=== PATIENT | male | born 1940 | race Caucasian/White ===

== ENCOUNTER 2021-02-19 10:57 | Emergency (ER) | payer OTHER ==
[~2021-02-19] VITALS: Ht 182.9 cm; Wt 104.3 kg
[2021-02-19 10:59] VITALS: BP 129/59
[2021-02-19 12:03] LABS: BASOPHILS 0.5 % (0.0-2.0); EOSINOPHILS 0.6 % (0.0-3.0); HEMATOCRIT 40.3 % (42.0-52.0); HEMOGLOBIN 13.4 gm/dL (14.0-18.0); LYMPHOCYTES 19.7 % (24.0-44.0); MCH 33.1 pg (26.0-34.0); MCHC 33.2 g/dL (28.0-37.0); MCV 99.6 fL (80.0-100.0); MONOCYTES 10.5 % (1.0-8.0); PLATELET COUNT 139 thou/uL (150-400); POLYS 68.7 % (36.0-66.0); RBC 4.04 mil/uL (4.50-6.00); RDW 13.7 % (10.5-14.5); WBC 5.8 thou/uL (4.0-11.0)
[2021-02-19 12:16] LABS: CALCIUM 8.5 mg/dL (8.5-10.1); CREATININE 1.9 mg/dL (0.7-1.3)
[2021-02-19 12:17] LABS: POTASSIUM 4.6 mmol/L (3.5-5.1)
[2021-02-19 12:26] LABS: ALBUMIN 2.9 g/dL (3.4-5.0); TOTAL BILIRUBIN 0.8 mg/dL (0.2-1.0); TOTAL PROTEIN 6.1 g/dL (6.4-8.2)
[2021-02-19 13:24] LABS: URINE BLOOD 3+ (Negative); URINE COLOR YELLOW; URINE GLUCOSE-RANDOM* NEGATIVE (Negative); URINE KETONES NEGATIVE (Negative); URINE PROTEIN (DIPSTICK) 1+ (Negative); URINE SPECIFIC GRAVITY >= 1.030 (1.005-1.035)
[2021-02-19] MEDS ORDERED: MORPHINE S20 MG/5 ML PO (13:33)
[2021-02-19 13:37] LABS: URINE LEUKOCYTES-REFLEX 3+ (Negative); URINE NITRITE-REFLEX POSITIVE (Negative)
[2021-02-19 13:38] LABS: ICTOTEST (BILI CONFIRMATORY) Negative (Negative); URINE BILIRUBIN NEGATIVE (Negative); URINE CLARITY HAZY
[2021-02-19 13:41] LABS: CASTS None Seen /LPF (None Seen); MUCUS 0-3 Light strn/LPF (None Seen); SQUAMOUS 0-3 Few /LPF (0-3)
[2021-02-19 13:42] LABS: BACTERIA-REFLEX >30 Many /HPF (None Seen); CRYSTALS None Seen /LPF (None Seen); URINE WBC-REFLEX >25 Many /HPF (0-5)
[2021-02-19 13:43] LABS: WBC CLUMPS Few (None Seen)
[2021-02-19 13:46] LABS: AMP/METHAMP Negative (Negative); BARBITURATES Negative (Negative); BENZODIAZEPINES Negative (Negative); COCAINE Negative (Negative); METHADONE Negative (Negative); OPIATES Negative (Negative); PCP Negative (Negative)
--- NOTE | 2021-02-19 15:42 | EKG ---
[address] [address] [facility] [place] [address] ELECTROCARDIOGRAM REPORT Name: MAMTA FLANNERY Room #: REG GILLES David#: [id number] Admission: 02/19/21 Attend Phys: Discharge: Date of : 44 Report #: [id number] [facility] ED Test Date: 2021-02-19 Test Time: 11:13:09 Pat Name: MAMTA FLANNERY Department: Room: Gender: M Data Scientist: reny : 1940 Requested By: Julianna Barajas Order Number: [id number] MD: Jayy Danielle Measurements Intervals [place] Rate: 60 P: -42 [place]: 154 QRS: -44 QRSD: 106 T: 6 QT: 616 QTc: 616 Interpretive Statements Atrial-sensed ventricular-paced complexes No further rhythm analysis attempted due to paced rhythm Left axis deviation Prolonged QT interval No previous ECG available for comparison Electronically Signed On 02-19-2021 15:42:19 CDT by Jayy Danielle [email or web address] <ELECTRONICALLY SIGNED> By: Jayy Danielle MD, [facility] 02/19/21 1542 1113 1113 Jayy Danielle MD, FACC /EPI
== END 2021-02-19 15:30 ==
LOC: ER 10:57
PROVIDERS: Emergency Medicine
DX: I45.81 Long QT syndrome (principal); Z20.822 Contact with and (suspected) exposure to COVID-19; F03.90 Unspecified dementia, unspecified severity, without behavioral disturbance, psychotic disturbance, mood disturbance, and anxiety; R45.1 Restlessness and agitation; N39.0 Urinary tract infection, site not specified; Z79.899 Other long term (current) drug therapy; Z88.6 Allergy status to analgesic agent

== ENCOUNTER 2021-02-19 14:52 | Inpatient (IN) | payer OTHER ==
[~2021-02-19] VITALS: Ht 190.5 cm; Wt 73.5 kg
[~2021-02-19 14:52] MED LIST: MORPHINE S20 MG/5 ML PO
--- NOTE | 2021-02-19 17:13 | NUR ---
PATIENT IS AN 80Y/O MALE WHO ARRIVED TO THE [facility] FROM [facility] AT 1524 HOUR. PATIENT RESIDES AT [facility]. ACORDING TO REPORT, PATIENT WAS REFUSING MEDS, AGITATED, UNCOOPERATIVE WITH CARES A,D AGGRESSIVE TOWARDS STAFF. PATIENT IS ALERT TO SELF, FORGETFUL, PLEASANTLY CONFUSED, UNABLE TO RESPOND APPROPRIATELY TO ASSESSMENT QUESTIONS. ASSESSMENT QUESTIONS OBTAINED FROM THE GROUP HOME, AND HIS -DPOA. GAVE CONSENT TO TREAT, SECOND RN WITNESSED CONSENT. PATIENT AMBULATE WITH UNSTEADY GAIT. HE WAS VERY ANGRY IRRITABLE, HOSTILE, COMBATIVE UPON ARRIVAL TO THE UNIT. HE BECAME VERY DIFFICULTY TO VERBALLY REDIRECT, DR. CARLOS PRESENT, AND GAVE ONE TIME ORDER FOR GEODON 15ML. GEODON GIVEN TO PATIENT TO RIGHT DELTIOD BY ORE TESTER. OTHER MEDICAL ISSUES INCLUDE:- VASCULAR DEMENTIA, CARDIOMYOPATHY, ARTHRITIS, HLD, ANEMIA, CHF, AFIB, GOUT, STAGE 3 CKD, PACEMAKER, CVA, LEGALLY BLIND, AND TREMORS. PATIENT CURRENTLY IN DAYROOM EATING SUPPER. THIS NURSE UNABLE TO COMPLETE PHYSICAL ASSESSMENT DUE TO PATIENT AGGRESSIVE/COMBATIVE BEHAVIOR, ORE TESTER REPORTS THAT PATIENT HAS ECHYMOSIS/SCABBED AREAS TO BLE. SIGN OF ACUTE DISTRESS NOTED AT THIS TIME, WILL CONTINUE TO REDIRECT, AND MONITOR FOR SAFETY. NOTED AT THIS TIME, WILL CONTINUE TO REDIRECT, AND MONITOR FOR SAFETY.
[2021-02-19 20:37] VITALS: BP 143/113
--- NOTE | 2021-02-20 05:09 | NUR ---
PATIENT IS ORIENTED TO PERSON ONLY. UNABLE TO ANSWER QUESTIONS APPROPRIATELY. PATIENT IS SITTING IN THE RECLINER TRYING TO STAND UP. PATIENT IS UNSTEADY ON HIS FEET AND REQUIRES MODERATE ASSISTANCE. PATIENT HAD NO MEDICATIONS ORDERED FOR HS TIME. PATIET EXHIBITS NO S/S OF PAIN. NO DISTRESS NOTED. VSS. PATIENT IS INCONTINENT. WILL CONTINUE TO MONITOR FOR CHANGES IN PATIENT STATUS.
[2021-02-20 08:08] LABS: CHOLESTEROL 117 mg/dL (<200); HDL CHOLESTEROL 39 mg/dL (>40); LDL CHOLESTEROL 62 mg/dL (<100); TRIGLYCERIDE 81 mg/dL (<150); VLDL 16 mg/dL (<40)
[2021-02-20 09:39] VITALS: BP 128/72
--- NOTE | 2021-02-20 10:02 | NUR ---
New admit to H. Pt admitted d/t increased aggitation and aggression towards NH staff. Noted to be [facility] and has increased aggitation; worsens in the evenings. PMH: vascular dementia, CHF, CKDIII, CVA. Oriented to self only, does not answer questions appropriately. [facility] foods [facility] at [facility]. No c/o chewing/swallowing issues, decreased appetite or recent weight loss per NH and DPOA. Ate 100% bkft this morning. Pt reported wt 230#, BMI 29. Follow intake trends. Low nutrition risk.
--- NOTE | 2021-02-20 14:34 | NUR ---
Alert and orientated to name only. Calm, compliant and cooperative. Denies SI/HI. Breath sounds clear. Reg HR ausculated. Color pink with brisk capillary refill and palpable peripheral pulses. Incontinent of large amt yellow urine. Active bowel sounds over soft, rounded abdomen. Able to take few steps, unsteady on feet. Currently in day room, no s/o distress.
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
--- NOTE | 2021-02-20 15:20 | NUR ---
Patient becoming physically aggressive with staff, agitated, hitting, kicking, attempting to bite. Multiple staff have attempted to interact with patient, provide activities, provide socialization. None of which were effective. Dr. Ahn notified. Order obtained for Geodon 20mg IM 1x dose. Medication administered.
[2021-02-20 20:15] VITALS: BP 160/93
[2021-02-20 23:06] LABS: GLYCOHEMOGLOBIN (HGB A1C) 4.6 % (4.8-5.6)
--- NOTE | 2021-02-20 23:12 | NUR ---
Assumed care on 02/20/21 @ 1900, seated in a lois chair. Alternates between drowsy and awake. Answers questions, oriented x1 to person. No agression noted. Will continue to monitor for safety and comfort, chair alarm in place.
--- NOTE | 2021-02-21 16:04 | NUR ---
Alert and orientated X1. Combative with cares this AM. Denies SI/HI. Able to get up in recliner. Breath sounds clear. Reg HR auscultated. Color pink with brisk capillary refill and palpable peripheral pulses. Incontinent of large amt yellow urine. Active bowel sounds over soft, rounded abdomen. Resistant to taking meds at noon but then eventually took with yogurt. When approached with afternoon meds he became combative and attempted to get out of recliner. Geodon 20 mg given IM per L deltoid, security provided bob hold d/t combativeness. Currently in dayroom at table with occassional calling out.
--- NOTE | 2021-02-21 16:12 | EKG ---
[address] [employer] [address] ELECTROCARDIOGRAM REPORT Name: MAMTA FLANNERY Room #: 52- ADM IN M.R.#: [id number] Admission: 02/19/21 Attend Phys: Gordon Ahn DO Discharge: Date of : 42 Report #: [id number] [facility] Test Date: 2021-02-21 Test Time: 12:07:37 Pat Name: MAMTA FLANNERY Department: Room: [facility] Gender: M Military Education Coordinator: mariana : 1940 Requested By: Gordon Ahn Order Number: [id number] MD: Jayy Danielle Measurements Intervals [place] Rate: 60 P: -46 [place]: 187 QRS: -50 QRSD: 119 T: -17 QT: 608 QTc: 608 Interpretive Statements Sinus or ectopic atrial rhythm Compared to ECG 02/19/2021 11:13:09 Ectopic atrial rhythm now present Myocardial infarct finding now present Ventricular-paced complex(es) or rhythm no longer present Atrial-sensed ventricular-paced complex(es) or rhythm no longer present Prolonged QT interval no longer present Electronically Signed On 02-21-2021 16:11:56 CDT by Jayy Danielle [email or web address] <ELECTRONICALLY SIGNED> By: Jayy Danielle MD, FAC 02/21/21 1611 1207 1207 Jayy Danielle MD, FAC /EPI
--- NOTE | 2021-02-21 16:51 | NUR ---
TAWANA recieved a call from the DON at [facility] concerning the Pt. TAWANA provided a verbal update on the Pt. TAWANA also inquired about hospice being discharged. The DON confirmed that hospice was discharged on the day before the Pt was admitted on the [facility]. TAWANA requested a copy of the hospice discharge paperwork and provided fax number. LEATHA had no other questions or concerns. TAWANA faxed updates to [facility]. TAWANA will continue to follow
[2021-02-21 19:36] VITALS: BP 118/78
[2021-02-21 23:15] VITALS: BP 118/78
--- NOTE | 2021-02-22 03:31 | NUR ---
02/21/21- pt rested throughout night, did not want his HS medication, and I was unable to give it to him. Pt sleep throughout the night, in room. Alert to self, not exhibiting and s/s of SI/HI/AH/VH.
[2021-02-22 09:09] VITALS: BP 158/79
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
--- NOTE | 2021-02-22 15:25 | NUR ---
Alert and orientated X1. Smiling and laughing appropriately in response to peers. Very little verbalizations except when yelling. Denies SI/HI. Resistant to assessment. Breath sounds clear. Reg HR auscultated. Color pink with brisk capillary refill and palpable peripheral pulses. Incontinent of yellow urine. Active bowel sounds over soft, rounded abdomen, passing flatulence. Resistant to sitting down in chair. Ambulated with steady gait with walker with increasingly fast pace. Combative with trying to change clothes with 2nd incontinence, attempting to hit and kick. Again ambulating at very fast pace and becoming combative with attempts at redirection. Dr. Ahn notified and security called. Placed in recliner and then gave geodon 20 mg IM per order. Calmed down after approximately 20 min. Again became restless, attempting to get out of chair. Scheduled olanzapine given PO by staff. Currently sleeping in recliner in dining room. No s/o distress.
[2021-02-22 20:02] VITALS: BP 126/92
--- NOTE | 2021-02-23 03:08 | NUR ---
PATIENT RESTING IN COMMON AREA IN CHAIR AT TABLE. PATIENT IS ORIENTED TO PERSON ONLY. HIS SPEECH IS MOSTLY UNRECONIZABLE. PATIENT TRIED TO SPIT OUT HIS MEDICATIONS AND TRIED TO KNOCK THE CUP OF WATER FROM [facility]. PT SHOWS NO S/S OF DISTRESS OR PAIN. VSS. WILL CONTINUE TO MONITOR FOR CHANGES IN STATUS.
[2021-02-23 09:57] VITALS: BP 150/81
--- NOTE | 2021-02-23 10:50 | NUR ---
TAWANA faxed updates to [facility]. TAWANA team will remain available while on this unit.
--- NOTE | 2021-02-23 18:29 | NUR ---
MINIMALLY VERBAL THROUGHOUT SHIFT -DURING AM ASSESSMENT REFUSES TO RESPOND TO QU ESTIONS BY STAFF-INCLUDING STATING HIS NAME-WHEN STAFF WALKED AWAY BEGAN TO YELL [id number] ATTEMPTING TO GET UP ON OWN SEVERAL TIMES DESPITE UNSTEADY GAIT-RESISTIVE WITH INCONTINENT CARE-GRABBING TIGHTLY ONTO BRIEF AND REFUSING TO LET GO-STRIKING OUT AT STAFF.
[2021-02-23 19:58] VITALS: BP 104/60
[2021-02-23 20:00] VITALS: BP 104/60
--- NOTE | 2021-02-24 04:18 | NUR ---
PATIENT SAT UP IN DINING ROOM IN ESVIN CHAIR AT A TABLE TONIGHT. HE HAD HS SNACK OF PUDDING. HE TOOK HIS MEDS CRUSHED IN PUDDING. HE SHOWS NO SIGNS OF SI/HI/AVH. PATIENT WAS ASSISTED TO BED AND STAYED IN BED FOR A FEW HOURS BEFORE BECOMING RESTLESS AND TRYING TO GET OUT OF BED. PATIENT HELPED WITH TOILETING AND HE INSISTED ON GETTING UP. ASSISTED PATIENT TO ESVIN CHAIR. NO CHAIR ALARM ON BECAUSE HE PLAYS WITH THEM AND TORE ONE UP EARLIER TODAY. PT IS IN DINING ROOM IN ESVIN CHAIR WITH WHEEL LOCKS ON AND APPEARS COMFORTABLE HE IS RESTING/SLEEPING WITH EYES CLOSED. HE IS A/0X1. PRETTY MUCH NONVERBAL. NO INDICATION OF PAIN. CONTINUING TO MONITOR.
[2021-02-24 10:18] VITALS: BP 149/72
--- NOTE | 2021-02-24 11:23 | NUR ---
Care of patient assumed 0700, patient sitting in the day room quietly, he refused breakfast and medication, he was not pleasant for assessment but I was able to listened to breath sound which was clear, active bowel sound, he is incontinent of bladder and bowel sound, he ambulate on lois chair, he is not able to verbalize need, no si/hi observed, will continue to monitor patient for safety.
[2021-02-24 19:55] VITALS: BP 140/111
[2021-02-24 20:12] VITALS: BP 140/111
--- NOTE | 2021-02-24 22:03 | NUR ---
Assumed care on 02/24/21 @ 1900, seated in lois chair at a table in the day room. Has eyes closed, awakens to voice but does not speak and answer mental health assessment. Took meds crushed that were crushable. Seemed to swollow the uncrushable meds which were provided in pudding. Was calm and had no behavior problems. Retired to bed @ , will continue to monitor for safety and comfort as per [facility] unit protocol.
[2021-02-25 10:20] VITALS: BP 116/69
--- NOTE | 2021-02-25 16:46 | NUR ---
Assumed pt care at 0700. pt was sleeping. Alert and oriented to person. Assessments completed, vss. Lungs clear, active bowel sound. Denies si/hi, denies pain. Took meds crushed in pudding, no difficulty noted. AMBULATES With a lois chair. Pt is irritable and aggressive with care. Incontinent x3 this shift. Pt is a max assist with care. Meds administered as ordered. At this time pt is in the day room. Will continue to monitor.
[2021-02-25 20:20] VITALS: BP 114/96
--- NOTE | 2021-02-26 05:05 | NUR ---
02-25-21 [facility] 1900 OBSERVED PT SITTING IN DAY ROOM. LATER PT AAOX1, VSS, RR EVEN AND NONLABORED ON RA. OBSERVED NO S/S OF PAIN AND NO SI/HI BEHAVIORS. PT PRESENTS CALM COOPERATIVE. DURING MEDICTION ADMIN PT HAD NO DIFFICULTIE TAKING MEDICATION CRUSHED IN APPLESAUCE. PT WILL CONTINUE TO BE MONITOR PER [facility].
[2021-02-26 09:01] VITALS: BP 140/116
--- NOTE | 2021-02-26 10:28 | NUR ---
CARE OF PATIENT ASSUMED 0700, PATIENT SITTING IN THE DAY ROOM, CALM AND PLEASANT THIS MORNING, HE ATE BREAKFAST, ASSESSMENT COMPLETED, BREATH SOUND CLEAR, ACTIVE BOWEL SOUND, RR EVEN AND NONLABORED, COLOR PINK WITH BRISK CAPPILARY REFILL, NO SKIN BREAKDOWN AND NO EDEMA NOTED, HE IS ALERT TO SELF AND CONFUSED, PATIENT IS INCONTINENT, AMBULATE WITH ESVIN CHAIR, PHYSICAL THERAPY CAME WALK WITH HIM BUT PATIENT REFUSED, HE TOOK HIS MEDICATION CRUSHED WITH PUDDING, NO SI/HI OBSEVERED, FALL PRECAUTION IN PLACE, MONIQUE CONTINUE TO MONITOR FOR SAFETY
--- NOTE | 2021-02-26 11:48 | NUR ---
RT Progress Note- Mychal has been limited in his participation in recreation therapy groups since his admission. While present in many groups, he often falls asleep or does not respond when encouraged. Mychal has displayed restlessness when awake and has participated in some 1;1 activity like sensory puzzles for a very short period before he is unable to maintain attention. EQUIPMENT ANALYST will continue to encourage progress towards goals.
--- NOTE | 2021-02-26 15:59 | NUR ---
TAWANA faxed updates to [facility]
[2021-02-26 19:48] LABS: CALCIUM 9.4 mg/dL (8.5-10.1); CREATININE 1.8 mg/dL (0.7-1.3); POTASSIUM 4.9 mmol/L (3.5-5.1)
[2021-02-26 20:00] VITALS: BP 136/84
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
--- NOTE | 2021-02-27 08:44 | NUR ---
Nutrition follow up: Pt noted with good intakes at meals 75-100%. Does better when fed or able to have finger foods. Staff notes he is still fighting staff during cares at times. Advanced dementia. Zyprexz increased 02/26. Hypernatremia present as well as elevated renal labs. Possible dehydration, encourage fluids. Pt reported weight on admit 230#, noted weight in [employer] 02/23 162#. Unsure of UBW and any degree of weight loss. He remains confused but alert. Will add supplement for additional kcal/PRO/fluid. Continue low nutrition risk with interventions initiated.
[2021-02-27 10:12] VITALS: BP 149/67
--- NOTE | 2021-02-27 17:59 | NUR ---
Assumed pt care at 0700. pt was in the day room resting.Alert and oriented to person. Assessments completed, vss. Pt was cooperative with care. Irritable but redirectable. Took meds crushed, no difficulty noted. No sign of acute distress noted upon assessments. No sign of si/hi noted. No c/o pain. Ambulates with a Gayla chair. Pt is currently in the day room at this time. WIll continue to monitor.
[2021-02-27 19:40] VITALS: BP 149/76
[2021-02-27 19:51] VITALS: BP 149/76
--- NOTE | 2021-02-28 02:10 | NUR ---
PATIENT CARE WAS RESUMED AT 1900. ALERT AND CONFUSED. HE WAS IN THE DAY AREA. LUNGS ARE CLEAR BS ACTIVE. HE IS INCONTINENT OF BOWEL AND BLADDER. MAX ASSIT WITH CARE AND VALERIE CARE. HE HAS YELLOW TOP AND SOCKS ON. DENIES PAINS. NO SIGN OF SI/AVH/HI. BED IS LOW , LOCKED AND ALARMED.MEDS WERE GIVEN WITH PUDDING. Q 12 MINUTES CHECKS ARE ONGOING AND PATIENT IS IN BED. CONTINUE CARE
[2021-02-28 10:29] VITALS: BP 162/75
--- NOTE | 2021-02-28 16:22 | NUR ---
Updates faxed to [facility]
[2021-02-28 19:40] VITALS: BP 162/75
[2021-03-01 10:06] VITALS: BP 113/93
--- NOTE | 2021-03-01 10:34 | NUR ---
PATIENT CARE ASSUMED AT 0700 - RESISTIVE IN MORNING. TOOK SEVERAL STAFF MEMBERS TO CHANGE PATIENT WHEN GETTING UP FOR BREAKFAST. ONCE SITUATED IN DINING PLUMMER QUIET AND CALM. FEEDER AND ASSISTED WITH BREAKFAST. PATIENT TOOK MEDICATIONS CRUSHED IN APPLESAUCE AND TOLERATED WELL. NON RESPONSIVE TO QUESTIONS ADDRESSED TO HIM. INCONTINENT OF BOTH BOWEL AND BLADDER AND NEEDS ASSISTANCE WITH TOLLETING. RESTLESS SOMEWHAT BUT REDIRECTABLE.
[2021-03-01 19:31] VITALS: BP 119/63
[2021-03-01 19:35] VITALS: BP 119/63
--- NOTE | 2021-03-01 23:22 | NUR ---
Assumed care on 03/01/21 @ 1900, reclined in a lois chair at a table. HRRR, S1S2 noted Breath sounds CTA bilat, ABD N x 4Q. High fall risk, dressed in yellow shirt and socks, chair alarm in place. Took meds crushed in applesauce and drank a little water. Transferred to bed @ HS, x2 staff. Bed alarm set, will continue to monitor as per unit protocol for safety and comfort.
[2021-03-02 07:50] VITALS: BP 160/96
[2021-03-02 09:51] VITALS: BP 160/96
--- NOTE | 2021-03-02 10:45 | NUR ---
RESUMMED CARE FROM OVERNIGHT SHIFT THIS AM, PATIENT SITTING IN DAY ROOM QUIET IN ESVIN CHAIR. PATIENT ALERT TO SELF ONLY PATIENT CALM COOPERATIVE; PATIENT UNABLE TO TELL ME ABOUT SI/HI/AH/VH AT PRESENT. PATIENT HAS DEMENTIA PATIENT ATE BREAKFAST TOOK MEDICATION CRUSHED IN APPLESAUCE. PATIENTS ABDOMEN SOFT BOWEL SOUNDS PRESENT. PATIENTS LUNGS CLEAR PATIENT HAS NOT DISPLAYED ANY BEHAVIORS. WILL CONTINUE TO MONITOR PATIENT FOR SAFETY AND BEHAVIORS.
--- NOTE | 2021-03-02 11:28 | NUR ---
11:30AM - FAX sent to [facility]. updates from 02/28 to 03/02.
[2021-03-02 15:14] LABS: URINE BILIRUBIN NEGATIVE (Negative); URINE BLOOD 3+ (Negative); URINE CLARITY SL CLOUDY; URINE COLOR YELLOW; URINE GLUCOSE-RANDOM* NEGATIVE (Negative); URINE KETONES TRACE (Negative); URINE LEUKOCYTES-REFLEX NEGATIVE (Negative); URINE NITRITE-REFLEX NEGATIVE (Negative); URINE PROTEIN (DIPSTICK) 1+ (Negative); URINE SPECIFIC GRAVITY 1.025 (1.005-1.035); URINE UROBILINOGEN 0.2 E.U./dl (0.2-1.0)
[2021-03-02 16:27] LABS: BACTERIA-REFLEX 1-9 Few /HPF (None Seen); SQUAMOUS 0-3 Few /LPF (0-3); URINE RBC >20 Many /HPF (NONE SEEN); URINE WBC-REFLEX 0-5 Rare /HPF (0-5)
[2021-03-02 19:25] VITALS: BP 147/90
[2021-03-02 19:35] VITALS: BP 147/90
--- NOTE | 2021-03-02 22:17 | NUR ---
Assumed care on 03/02/21 @ 1900, seated in the lois chair in the day room at a table. cooperative with assessment, trembling noted, HRRR ABD sounds present Lung sounds diminished. Takes meds crushed. oriented to self only. Provided Tylenol 650 provided for general pain of 6/10. Unable to verbally relay mental health assessment. No indication of hallucinations. Tremmors noted. Transferred to bed x2 assist, bed in low position bed alarm set, will continue to monitor.
[2021-03-03 09:34] VITALS: BP 138/102
--- NOTE | 2021-03-03 16:53 | NUR ---
Assumed pt care at 0700. Pt was oriented to self. active bowel sounds, Lungs clear. NO SIGN OF ACUTE DISTRESS NOTED UPON ASSESSMENTS. NO C/O PAIN at this time. Combative, uncooperative and physically aggressive with care. Pt is more than a max assist with care due to combative and aggressive behaviors. Ambulates with a Gayla chair. Took meds crushed with yogurt. 1332 ATIVAN 1mg PRN ADMINISTERED FOR SEVERE agitation, and aggressive behavior. incontinent x4 this shift. At this time pt is in the day room eating dinner. Will continue to monitor.
[2021-03-03 19:30] VITALS: BP 138/102
--- NOTE | 2021-03-03 19:59 | NUR ---
Assumed care on 03/03/21 @ 1900, seated in lois chair in the day room, eyes closed, arousable. HRRR, Lung sounds CTA but diminished only due to patient not breathing deeply when asked to do so. ABD N x 4Q. Refused to allow VS to be taken, will try again in a few minutes. Chair alarm in place, will continue to monitor for safety and comfort as per unit protocol.
[2021-03-04 05:48] LABS: HEMATOCRIT 39.8 % (42.0-52.0); HEMOGLOBIN 13.4 gm/dL (14.0-18.0); MCH 33.5 pg (26.0-34.0); MCHC 33.6 g/dL (28.0-37.0); MCV 99.7 fL (80.0-100.0); RBC 3.99 mil/uL (4.50-6.00); RDW 14.1 % (10.5-14.5); WBC 3.6 thou/uL (4.0-11.0)
[2021-03-04 06:17] LABS: ALBUMIN 2.8 g/dL (3.4-5.0); ANION GAP 6 mmol/L (7-16); BUN 46 mg/dL (7-18); CALCIUM 8.3 mg/dL (8.5-10.1); CHLORIDE 115 mmol/L (98-107); CO2 32 mmol/L (21-32); CREATININE 1.6 mg/dL (0.7-1.3); GLUCOSE 87 mg/dL (74-106); POTASSIUM 4.1 mmol/L (3.5-5.1); SGOT 49 U/L (15-37); SGPT 61 U/L (30-65); SODIUM 153 mmol/L (136-145); TOTAL BILIRUBIN 0.5 mg/dL (0.2-1.0); TOTAL PROTEIN 6.2 g/dL (6.4-8.2)
--- NOTE | 2021-03-04 15:01 | NUR ---
Assumed pt care at 0700. pt was alert and oriented to person. Assessments completed, vss. pt was confused, uncooperative, combative and aggressive with care. Took meds crushed with yogurt. Pt was assisted with each meal. Incontinent x4 at this time. pt is a fall risk. Fall precuation in place. No sign of si/hi noted. No c/o pain at this time. Will continue to monitor.
[2021-03-04 17:19] VITALS: BP 144/70
[2021-03-04 20:09] VITALS: BP 137/70
--- NOTE | 2021-03-05 02:19 | NUR ---
PATIENT RESTING IN HIS ROOM OV PROTOCOL FOR POSITIVE COVID TEST. AT THIS TIME PATIENT IS CALM AND COOPERATIVE. PT ORIENTED TO PERSON ONLY. HE IS ABLE TO RESPOND TO SOME SIMPLE COMMANDS BUT MOST OF HIS SPEECH IS INCOHERENT. NO SIGNS OF PAIN OBSERVED. PATIENT VSS. TAKES HIS MEDICATIONS WITH PUDDING. NO S/S OF DISTRESS NOTED.
--- NOTE | 2021-03-05 10:13 | NUR ---
UNABLE TO ADMINISTER MORNING MEDICATION, PATIENT IS TOO SEDATED, DIFFICULT TO AROUSE, UNABLE TO SWALLOW MEDICATIONS. ALL MORNING MEDICATION HELD THIS NURSE WAS ABLE TO GET TEMP. 97.8, 02 95%, PULSE 60, RESP 18, BLOOD PRESSURE UNABLE TO REGISTER. SHEET CUTTING OPERATOR AWARE, AND CURRENTLY IN PATIENT CARE MORNING MEETING WITH THE PSYCHIATRIST, WILL MONITOR FOR SAFETY.
[2021-03-05 10:14] VITALS: BP 115/60
--- NOTE | 2021-03-05 14:54 | NUR ---
TAWANA spoke with Kenisha at [facility] concerning discharge. Michelle informed she had not recieved updates. TAWANA refaxed updates. TAWANA also informed Kenisha that the Pt was COVID+. Kenisha informed they would not be able to meet the Pt's needs due to being covid positive and could not accept the Pt back.
--- NOTE | 2021-03-05 14:58 | NUR ---
MANUELA contacted Pt's DPOA/, Mariak, concerning discharge. SW informed of the plane for discharge and that [facility] was unwilling to accept the Pt back due being covid+. MANUELA informed the alternative plan was to get Pt to a hospice house. SW provide education on hospice house. MANUELA informed that hospice and [facility] house both accepted COVID Pt's. Marika was in agreement to the referrals. MANUELA faxed referrals to [facility] and [facility] Manuela will continue to follow up
--- NOTE | 2021-03-05 15:22 | NUR ---
RT Progress Note- Throughout the beginning of this review period, Mychal did not improve in participation with recreation therapy, rather remained passive and nonverbal. Due to pts COVID+ status currently, he has not been able to participate in recreation therapy at this time.
[2021-03-05 18:54] VITALS: BP 107/61
--- NOTE | 2021-03-06 04:56 | NUR ---
03-05-21 CARE TRANSFERRED 1914. LATER PT AAOX1, CALM AND RESTLESS, HCP CONTACTED AND COMFORT CARE ORDERS RECEIVED. PT WILL CONTINUE TO BE MONITR PER [facility] PROTOCOL.
[2021-03-06 08:47] VITALS: BP 107/61; BP 147/88
--- NOTE | 2021-03-06 09:14 | NUR ---
[facility] denied Pt due to Pt being COVID+. They are not accepting any COVID Pt's at this time.
--- NOTE | 2021-03-06 11:12 | NUR ---
Nutrition followup: pt has been refusing meals. Now COVID + and has been made comfort care. Attempting to transfer to hospice facility. Defer further evals
--- NOTE | 2021-03-06 13:09 | NUR ---
TAWANA and Dr. lCayton spoke with Kenisha from [facility] concerning if they are able to take the Pt back on hospice. Kenisha again stated she would need to speak with her law firm administrator about the issue. TAWANA and Dr. Clayton urged for this to be a timely and urgent matter as the Pt is actively passing. TAWANA asked Kenisha to call back withing an hour.
--- NOTE | 2021-03-06 13:16 | NUR ---
SW [facility]. However Pt's wanted to be sure [facility] could not accomodate. [facility] is willing to hold a bed while until family can figure out decision from [facility]
--- NOTE | 2021-03-06 13:17 | NUR ---
11:15am TAWANA recieved a call from Kenisha stating they would not be able to accommodate the needs of the Pt. Pt unable to return to [facility]. 11:53am TAWANA Spoke with Julia Rojas concerning the matter. Julia informed [facility] did call her concerning the matter. Julia was in agreement with the Pt going to [facility]. 1204 SW called Bel and informed family was ready to move forward with the Pt going to [facility]. Discharge was set for 03/06/2021 @ 1300. Pt will be transported by [facility] [employer], tracking #[id number].
--- NOTE | 2021-03-06 13:25 | NUR ---
NOTED TO BE RESLTESS,MOANING SOFTLY TO SELF AND AT TIMES WILL YELL OUT OUDLY. APPEARS TO BE RESPONSDING TO INTERNAL STIMULI-AT ONE POINT OVERHEARD STATING CLEARLY "GETT OFF OF ME" IS TAKING SIPS OF [id number],AND SPOONFULS OF ICE CHIPS, WILL EAT APPLESAUCE AND PUDDING,ICE CREAM AND MEDs are crushed. incontinent of stool and urine-mildly combative with incont care
--- NOTE | 2021-03-06 13:51 | NUR ---
-CLOTHING CHANGE,INCONTINENT CARE AND ORAL CARE COMPLETED BY TWO STAFF PRIOR TO DISCHATGE -DURING INCONTINENT CARE NOTED TO HAVE LARGE BLISTER TO LEFT SCAPPULA AREA APPROX 4CMX3 CM-DURING PROCESS OF CHANGING BED LINEN BLISTER POPPED AND IS DRAINGING YELLOWISH FLUID-EARNESTINE AT [facility] NOTIFIED OF ABOVE NOTED SKIN BREAKDOWN-IN ADDITION TO MIDLINE COCYX OPEN AREA AND BLISTERS X2 TO LEFT PATEL-OPTIFOAM DRESSING APPLIED-BALTAZAR AND NOTIIFIED
--- NOTE | 2021-03-08 12:34 | D ---
[facility] [place] [address] DISCHARGE SUMMARY Name: MAMTA FLANNERY Room #: 522B-B [facility] IN M.R.#: [id number] Admission: 02/19/21 Attend Phys: Gordon Ahn DO Discharge: 03/06/21 Date of : 44 Report #: [id number] THIS REPORT FOR: cc: FAM - Family physician unknown FAM - Family physician unknown Gordon Ahn DO ~ DATE OF SERVICE: 03/06/2021 INPATIENT PSYCHIATRIC DISCHARGE SUMMARY ATTENDING PSYCHIATRIST: Gordon Ahn DO CUSTODIAL ENGINEER: Reid Esquivel MD DISCHARGE DIAGNOSES: Major neurocognitive disorder, likely due to Alzheimer's disease with behavioral disturbance, end-stage, terminal. COVID-19 positive, as a contributing factor to the patient's current clinical condition. MEDICAL COMORBIDITIES: At this point include history of hypertension. Other medical comorbidities include urinary tract infection, treated with antibiotics. HOSPITAL COURSE: The patient is being discharged to [facility]. End of life care at [facility]. There are no discharge medications since he was going to hospice house. LABORATORY DATA: Significant laboratories this admission, last hematology was on 03/04/2021, white count 3.6, H and H 13.4 and 39.3, platelet count 97. Chemistries from 03/04/2021, sodium 153, potassium 4.1, chloride 115, bicarbonate 32, anion gap 6, BUN 46, creatinine 1.6, calcium 8.3, AST 49, ALT 61, ammonia less than 10, alkaline phosphatase less than 10. Total protein 6.2, albumin 2.8. Urinalysis on 02/28/2021 showed 1+ protein, trace ketones, 3+ blood, greater than 20 rbc's, few bacteria. COVID-19 serology from 03/04/2021 was positive. Imaging done on 03/04/2021 showed left basilar atelectasis or developing infiltrate with chronic scarring, progressed since 02/19/2021. MICROBIOLOGY: This admission, urine culture was positive for greater than 100,000 CFUs of Klebsiella pneumoniae. The antibiotic that the patient was treated with was Rocephin x3 doses, 1 gram. HOSPITAL COURSE: During the course of hospitalization, the patient was titrated to 2 mg t.i.d. olanzapine regimen and 500 mg p.o. b.i.d. Depakote. For the last 2 days or so before discharge, his psychiatric meds were discontinued as the patient stopped eating, drinking and appears to be ready for hospice care. CONDITION AT DISCHARGE: Guarded. VITAL SIGNS: Temperature 36.4, pulse 75, respirations 16, BP 147/88, O2 sat [address] [address] DISCHARGE SUMMARY Name: ALMA DELIAMAMTA Room #: 522B-B [facility] IN M.R.#: [id number] Admission: 02/19/21 Attend Phys: Gordon Ahn DO Discharge: 03/06/21 Date of : 44 Report #: [id number] 92%. DIET: Regular diet. Bedridden at this point, on Depends. PHYSICAL EXAMINATION: As stated bedridden, ill, frail appearing. He did slightly reach his arm out to shake my hand, but was unable to respond to commands at this point. MENTAL STATUS EXAMINATION: A well-developed, ill-appearing male, appearing near terminal conditions. Attention and concentration impaired. Speech nonverbal. Thought process: Unable to assess. Thought content: Unable to assess. Mood was constricted, congruent. Memory: Known to be impaired, not formally tested. Insight is impaired. Judgment is impaired. Fund of knowledge, well below average. Prognosis for this patient is terminal. patient discharged to [facility]. Should note, did have conversation today with Kenisha at [facility], they declined to take the patient back even though there is [facility] and requested him to be sent to the [facility]. <ELECTRONICALLY SIGNED> By: Gordon Ahn DO 03/08/21 1234 [id number] Gordon Ahn DO /nt
== END 2021-03-06 14:15 | disposition hospice, home (50) | DRG 56 ==
LOC: SBH
PROVIDERS: Psychiatry & Neurology Psychiatry; ADMIT Psychiatry & Neurology Psychiatry; ATTEND Psychiatry & Neurology Psychiatry
DX: G30.9 Alzheimer's disease, unspecified (principal); F01.51 Vascular dementia, unspecified severity, with behavioral disturbance; U07.1 COVID-19; N39.0 Urinary tract infection, site not specified; F02.81 Dementia in other diseases classified elsewhere, unspecified severity, with behavioral disturbance; B96.1 Klebsiella pneumoniae [K. pneumoniae] as the cause of diseases classified elsewhere; Z80.42 Family history of malignant neoplasm of prostate; Z82.49 Family history of ischemic heart disease and other diseases of the circulatory system; Z88.8 Allergy status to other drugs, medicaments and biological substances
CPT/HCPCS: 10880